=== PATIENT | female | born 2005 | race Caucasian/White ===

== ENCOUNTER 2025-04-18 10:57 | Emergency (ER) | payer BC, SELFPAY ==
[2025-04-18 11:17] VITALS: BP 112/66; PULSE 86; RESP 18; TEMP 36.8; O2SAT 100
--- NOTE | 2025-04-18 12:36 | ED_ITS ---
HPI - General Adult General Chief complaint: Upper Respiratory Infection Stated complaint: Body aches/Fever/Sore Throat Source: patient Mode of arrival: ambulatory Limitations: no limitations History of Present Illness HPI narrative: Patient presents for evaluation of sick symptoms. Symptom onset yesterday. She reports fever, chills, and sore throat. No cough, shortness of breath, nausea, vomiting, diarrhea. She was exposed to COVID by her roommate. She has not been taking any medication for her symptoms. She does not smoke. Related Data Home Medications ?Medication ?Instructions ?Recorded ?Confirmed ?Last Taken ?Type levonorgestrel-ethinyl estradiol tablet 04/18/25 Unkn own History 0.1 mg-20 mcg tablet (Vienva) spironolactone 100 mg tablet mg 04/18/25 Unknown Hist ory Allergies Allergy/AdvReac Type Severity Reaction Status Date / Time No Known Allergies Allergy Verified 04/18/25 12:25 Review of Systems Review of Systems: CONSTITUTIONAL: reports fever and chills. EYES: Denies visual changes, redness, or discharge. ENT: Reports sore throat. Denies rhinorrhea, congestion, or otalgia. CARDIOVASCULAR: Denies chest pain, palpitations, or edema. RESPIRATORY: Denies cough or dyspnea. GASTROINTESTINAL: Denies abdominal pain, nausea, vomiting, or diarrhea. GENITOURINARY: Denies dysuria or hematuria. SKIN: Denies rash or itching. MUSCULOSKELETAL: Denies back pain, joint pain, or myalgia. NEUROLOGIC: Denies headache, numbness, dizziness, or weakness. PSYCHIATRIC: Denies anxiety or depression. [facility] Past Medical History Medical History No pertinent past medical history Surgical History Surgical History No pertinent past surgical history Family History Family History Mother Family history non-contributory Social History Social History Smoking status: Never smoker Substance use: never Gender identity (if verbalized by the patient): Female Spiritual care concerns: No Exam Narrative: GENERAL: Well-appearing, well-nourished, and in no acute distress. HEAD: Normocephalic, atraumatic. EYES: PERRLA and EOMI. ENT: Nares clear, no rhinorrhea or epistaxis. Mucous membranes moist. Oropharynx without tonsillar hypertrophy exudate or other lesions. Bilateral TMs pearly dupree nonbulging NECK: Supple. No adenopathy or masses. No carotid bruits or JVD CHEST: Clear to auscultation. No respiratory distress. No wheezes rales or rhonchi HEART: Regular rate and rhythm. No murmur heard. Normal peripheral pulses. ABDOMEN: Soft, nontender, nondistended, normal active bowel sounds. EXTREMITIES: Normal range of motion. No edema. SKIN: Warm, dry, no rash. NEURO: No focal deficits. Alert and oriented x3. PSYCH: Normal mood and affect. Course Course Emergency Course: This is a 20-year-old female who presented for evaluation of sick symptoms. Her COVID test was negative but I suspect that she has COVID and it is too early to tell. Her strep was negative. Will send throat culture. She would like to start abx in the event that her strep was a false negative. Will start augmentin. Follow up with primary provider. Go to the ER for worsening symptoms. Pt in agreement with plan of care. Level of Care: Express Care Visit Vital Signs Vital signs: Vital Signs Temperature 36.8 C 04/18/25 11:17 Pulse Rate 86 04/18/25 11:17 Respiratory Rate 18 04/18/25 11:17 Blood Pressure 112/66 04/18/25 11:17 Pulse Oximetry 100 04/18/25 11:17 Temperature 36.8 C 04/18/25 11:17 Pulse Rate 86 04/18/25 11:17 Respiratory Rate 18 04/18/25 11:17 Blood Pressure 112/66 04/18/25 11:17 Pulse Oximetry 100 04/18/25 11:17 Medical Decision Making Vital Signs Vital Signs: Vital Signs Temperature 36.8 C 04/18/25 11:17 Pulse Rate 86 04/18/25 11:17 Respiratory Rate 18 04/18/25 11:17 Blood Pressure 112/66 04/18/25 11:17 Pulse Oximetry 100 04/18/25 11:17 Temperature 36.8 C 04/18/25 11:17 Pulse Rate 86 04/18/25 11:17 Respiratory Rate 18 04/18/25 11:17 Blood Pressure 112/66 04/18/25 11:17 Pulse Oximetry 100 04/18/25 11:17 Discharge Plan Discharge Clinical Impression: Pharyngitis, Close exposure to 2019 novel coronavirus Patient Disposition: Home Condition: Stable Instructions: Antibiotic Form, Pharyngitis (ED) Additional Instructions: PLEASE REPEAT A COVID TEST TOMORROW AND AGAIN THE DAY AFTER Patient Language: [place] Island[place] Prescriptions: New amoxicillin-pot clavulanate 875-125 mg tablet 1 tablet PO Q12H Qty: 20 0RF No Action levonorgestrel-ethinyl estrad [Vienva] 0.1-20 mg-mcg tablet spironolactone 100 mg tablet Follow-up/Referrals: Amish Molina MD [Physician, Family Practice] Stand Alone Forms: Work/School Release IP Time of Disposition: 12:31
[2025-04-18 12:54] LABS: EDCOVIDSCREEN Negative (Negative); EDSTREPNEGPOS1 Negative (Negative)
== END 2025-04-18 13:01 | disposition home or self-care (01) ==
PROVIDERS: Emergency Provider Nurse Practitioner
DX: J02.9 Acute pharyngitis, unspecified (principal); Z20.822 Contact with and (suspected) exposure to COVID-19
CPT/HCPCS: 87081; 87426; 87880; 99203; G0463